=== PATIENT | male | born 1980 | race Caucasian/White ===

== ENCOUNTER 2016-12-10 20:14 | Emergency (ER) | payer OTHER ==
[2016-12-10] MEDS ORDERED: ONDANSETRON 4 MG TAB.RAPDIS PO ONE (21:32)
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
[2016-12-11] MEDS ORDERED: HYDROCODONE/ACETAMINOPHEN 5-325 MG TABLET PO ONE (01:05)
[2016-12-11] MEDS ORDERED: CYCLOBENZAPRINE HCL 10 MG TABLET PO ONE (01:05)
[2016-12-11 01:47] VITALS: BP 122/69
== END 2016-12-11 01:39 | disposition home or self-care (01) ==
LOC: ER 20:14
DX: S20.219A Contusion of unspecified front wall of thorax, initial encounter (principal); S16.1XXA Strain of muscle, fascia and tendon at neck level, initial encounter; S09.90XA Unspecified injury of head, initial encounter; M54.9 Dorsalgia, unspecified; R11.2 Nausea with vomiting, unspecified; V43.52XA Car driver injured in collision with other type car in traffic accident, initial encounter; R42 Dizziness and giddiness; F17.220 Nicotine dependence, chewing tobacco, uncomplicated; Z87.442 Personal history of urinary calculi
CPT/HCPCS: 99284; 71020; 70450; 72125; S0119

== ENCOUNTER 2017-05-31 23:36 | Emergency (ER) | payer SELFPAY ==
--- NOTE | 2017-06-01 | ER Document Report ---
HPI - HPI Patient complains to provider of: Right wrist and hand pain Onset: Other - 2 days Onset/Duration: Sudden Quality of pain: Throbbing Pain Level: 5 Context: 37-year-old male fell backwards slipping on the ice using his outstretched right arm and hand to help support when he fell. After it happened yesterday and today he noticed swelling to his dorsal right hand and wrist with increased pain. He has already been to x-ray and my preliminary read is that it is negative. Associated Symptoms: None Exacerbated by: Movement Relieved by: Denies Similar symptoms previously: No Recently seen / treated by doctor: No - ROS ROS below otherwise negative: Yes Systems Reviewed and Negative: Yes All other systems reviewed and negative - REPRODUCTIVE Reproductive: DENIES: : Past Medical History - General Information source: Patient - Social History Smoking Status: Unknown if Ever Smoked Frequency of alcohol use: None Drug Abuse: None Lives with: Family Family History: Arthritis, CAD, COPD, CVA, DM, Hyperlipidemia, Hypertension, Malignancy, Thyroid Disfunction, Other - Negative for premature coronary artery disease Renal/ Medical History: Reports: Hx Kidney Stones. 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 Psychiatric Medical History: Reports: Hx Attention Deficit Hyperactivity Disorder Denies: Hx Depression Infectious Medical History: Reports: Hx C-Diff Past Surgical History: Reports: Hx Kidney (Renal Surgery), Hx Orthopedic Surgery - right knee - Immunizations Hx Diphtheria, Pertussis, Tetanus Vaccination: No Vertical Provider Document - CONSTITUTIONAL Agree With Documented VS: Yes Exam Limitations: No Limitations - INFECTION CONTROL TRAVEL OUTSIDE OF THE [place] IN LAST 30 DAYS: No - HEENT HEENT: Normocephalic - NECK Neck: Supple - RESPIRATORY O2 Sat by Pulse Oximetry: 100 - MUSCULOSKELETAL/EXTREMETIES Musculoskeletal/Extremeties: MAEW, FROM, Tender, Edema - proximal dorsal right hand over the carpels. Non tender snuff box. FRO<. N/V intact. - NEURO Level of Consciousness: Awake, Alert, Appropriate - DERM Integumentary: Warm, Dry, No Rash Course - Re-evaluation Re-evalutation: 06/01/17 01:05 X-rays are negative per radiologist - Vital Signs Vital signs: Temp Pulse Resp BP Pulse Ox 98.2 F 104 H 16 127/82 H 100 01/05/18 23:42 05/31/17 23:42 05/31/17 23:42 05/31/17 23:42 05/31/17 23:42 Procedures - Immobilization Right Wrist Time completed: 01:10 Pre-Proc Neuro Vasc Exam: Normal Immobilizer type: Adeel wrap Performed by: RN Post-Proc Neuro Vasc Exam: Normal Alignment checked and good: Yes Discharge - Discharge Clinical Impression: right hand and wrist sprain Condition: Good Disposition: HOME, SELF-CARE Instructions: Sprain ([facility] [place]), Adeel Wrap ([facility]) Additional Instructions: adeel wrap for comfort tylenol and motrin for pain to er any concerns copy of negative radiology report given to you see orthopedic hand surgeon if problem persists Referrals: TALIA MARTINES DO [ACTIVE STAFF] - Follow up as needed
[2017-06-01 00:09] VITALS: BP 130/71
--- NOTE | 2017-06-01 00:54 | RADIOLOGY REPORT (SQ) ---
EXAM DESCRIPTION: WRIST RIGHT 3 VIEWS (accession [id number]), HAND RIGHT 3 VIEWS (accession [id number]) CLINICAL HISTORY: 37 years, Male, fall with pain COMPARISON: None. TECHNIQUE: Six images. FINDINGS: Bones, joints, and soft tissues of the right hand and wrist appear intact. IMPRESSION: No acute findings. 2011 [employer]- All Rights Reserved
--- NOTE | 2017-06-01 00:54 | RADIOLOGY REPORT (SQ) ---
EXAM DESCRIPTION: WRIST RIGHT 3 VIEWS (accession [id number]), HAND RIGHT 3 VIEWS (accession [id number]) CLINICAL HISTORY: 37 years, Male, fall with pain COMPARISON: None. TECHNIQUE: Six images. FINDINGS: Bones, joints, and soft tissues of the right hand and wrist appear intact. IMPRESSION: No acute findings. 2011 [employer]- All Rights Reserved
== END 2017-06-01 01:17 | disposition home or self-care (01) ==
LOC: ER 23:36
DX: S63.501A Unspecified sprain of right wrist, initial encounter (principal); S63.91XA Sprain of unspecified part of right wrist and hand, initial encounter; W00.0XXA Fall on same level due to ice and snow, initial encounter; Z87.442 Personal history of urinary calculi
CPT/HCPCS: 99283

== ENCOUNTER 2017-11-11 00:34 | Emergency (ER) | payer SELFPAY ==
[2017-11-11] MEDS ORDERED: KETOROLAC TROMETHAMINE INJ/PF 30 MG/1 ML SDV IM ONE (01:33)
--- NOTE | 2017-11-11 01:57 | RADIOLOGY REPORT (SQ) ---
EXAM DESCRIPTION: CT ABDOMEN WITHOUT IV CONTRAST COMPLETED DATE/TME: 11/11/2017 01:32 CLINICAL HISTORY: left flank pain COMPARISON: 11/16/2015 TECHNIQUE: CT of the abdomen and pelvis without IV contrast. Evaluation of the solid organs and vasculature is suboptimal due to lack of IV contrast. DLP: 595.55 mGy-cm FINDINGS: Lung Bases: The visualized lung bases are clear. Bones: No destructive bone lesions identified. Abdomen: Liver: The liver has normal size and density. Gallbladder: No calcified gallstones. Spleen, Pancreas, and Adrenal Glands: The spleen, pancreas, and adrenal glands are unremarkable. Kidneys: There is a 0.7 cm obstructing calculus in the mid left ureter producing mild left hydroureter and hydronephrosis. Nonobstructing inferior pole 0.5 cm left renal calculus. No right-sided hydronephrosis. Vasculature: The aorta and IVC have normal caliber and position. Stomach: The stomach and duodenum have normal course. Other: No free intraperitoneal air. No free fluid or lymphadenopathy. Pelvis: Bladder: Urinary bladder is unremarkable. Bowel: Scattered diverticula colon. No pericolic inflammatory change. Appendix: Normal appendix. Pelvis: Prostate is not enlarged. IMPRESSION: 1. There is a 0.7 cm obstructing calculus in the mid left ureter producing mild left hydroureter and hydronephrosis. 2. Nonobstructing left nephrolithiasis. 3. Diverticulosis without evidence of acute diverticulitis. This exam was performed according to our departmental dose-optimization program, which includes automated exposure control, adjustment of the mA and/or kV according to patient size and/or use of iterative reconstruction technique.
--- NOTE | 2017-11-11 01:59 | ER Document Report ---
ED GI/ - General Chief Complaint: Possible Kidney Stone Stated Complaint: LOWER LT ABDOMINAL PAIN Time Seen by Provider: 11/11/17 01:32 Notes: The patient is a 37-year-old male, past medical history prior kidney stones that required urologic intervention, presents with left-sided flank pain radiating into his groin. On my evaluation, he feels like the pain has improved. Patient denies hematuria, dysuria, nausea, vomiting, fevers, diarrhea or constipation. TRAVEL OUTSIDE OF THE [place] IN LAST 30 DAYS: No - Related Data Allergies/Adverse Reactions: No Known Allergies Allergy (Verified 11/13/15 09:12) Past Medical History - General Information source: Patient - Social History Smoking Status: Unknown if Ever Smoked Family History: Arthritis, CAD, COPD, CVA, DM, Hyperlipidemia, Hypertension, Malignancy, Thyroid Disfunction, Other - Negative for premature coronary artery disease Renal/ Medical History: Reports: Hx Kidney Stones. 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 RESPIRATORY: -cough, -SOB GASTROINTESTINAL: +left-sided abdominal pain, -nausea, -vomiting, -diarrhea GENITOURINARY: -dysuria, -hematuria MUSCULOSKELETAL: -back pain, -neck pain SKIN: -rash or skin lesions. HEMATOLOGIC: -easy bruising or bleeding. LYMPHATIC: -swollen, enlarged glands. NEUROLOGICAL: -altered mental status or loss of consciousness, -headache, - neurologic symptoms PSYCHIATRIC: -anxiety, -depression. ALL OTHER SYSTEMS REVIEWED AND NEGATIVE. Physical Exam - Vital signs Vitals: Temp Pulse Resp BP Pulse Ox 97.9 F 77 15 125/72 95 11/11/17 01:28 11/11/17 01:28 11/11/17 01:28 11/11/17 01:28 11/11/17 01:28 - Notes Notes: PHYSICAL EXAMINATION: GENERAL: Well-appearing, well-nourished and in no acute distress. HEAD: Atraumatic, normocephalic. EYES: Pupils equal round and reactive to light, extraocular movements intact, sclera anicteric, conjunctiva are normal. ENT: nares patent, oropharynx clear without exudates. Moist mucous membranes. NECK: Normal range of motion, supple without lymphadenopathy LUNGS: Breath sounds clear to auscultation bilaterally and equal. No wheezes rales or rhonchi. HEART: Regular rate and rhythm without murmurs ABDOMEN: Soft, nontender, normoactive bowel sounds. No guarding, no rebound. No masses appreciated. EXTREMITIES: Normal range of motion, no pitting or edema. No cyanosis. NEUROLOGICAL: Cranial nerves grossly intact. Normal speech, normal gait. Normal sensory and motor exams. PSYCH: Normal mood, normal affect. SKIN: Warm, Dry, normal turgor, no rashes or lesions noted. Course - Re-evaluation Re-evalutation: Patient appears well and is refusing any pain medicine. He has a 7 mm stone at the mid-left ureter. Urinalysis shows 143 WBCs, but only trace leukocyte esterase. No fever and no signs of sepsis. We will begin him on Keflex and offered him admission, but he says he feels fine and will follow up with his urologist. Because of the size of the stone, will begin the patient on Flomax and have him follow-up with the urologist for further evaluation and treatment. Given very strict return precautions and he understands. - Vital Signs Vital signs: Temp Pulse Resp BP Pulse Ox 97.9 F 77 15 125/72 95 11/11/17 01:28 11/11/17 01:28 11/11/17 01:28 11/11/17 01:28 11/11/17 01:28 - Laboratory Laboratory results interpreted by me: 11/11/17 02:06 Urine Protein 100 H Urine Blood LARGE H Urine Urobilinogen 2.0 H Ur Leukocyte Esterase TRACE H - Diagnostic Test Radiology reviewed: Image reviewed, Reports reviewed Radiology results interpreted by me: CT A/P: 1. There is a 0.7 cm obstructing calculus in the mid left ureter producing mild left hydroureter and hydronephrosis. 2. Nonobstructing left nephrolithiasis. 3. Diverticulosis without evidence of acute diverticulitis. Discharge - Discharge Clinical Impression: Calculus of left kidney Condition: Stable Disposition: HOME, SELF-CARE Additional Instructions: KIDNEY STONE: You are passing or have passed a kidney stone. These stones are usually due to increased calcium or uric acid concentrations in your urine. Stones within the kidney itself are not painful. The pain occurs as the stone leaves the kidney to pass down the long tube, called the ureter, leading to the bladder. If the stone is small, it will usually pass by itself. Most patients can pass the stone at home. You will usually receive medications for pain, nausea or vomiting, and sometimes a medication to assist in passing the kidney stone. However, if the pain is very severe or if vomiting prevents you from taking oral pain medications, you may need to return for further treatment. Drink three or four quarts of fluids per day. You will be given pain medication (if needed) and urine strainers. Strain all your urine to see if the stone passes. If your doctor has asked you to bring the stone in for analysis, return with the stone once it has passed. Return if pain or vomiting become severe, if you develop a high fever, if you are unable to pass your urine, or if other unusual symptoms occur. ANTINAUSEA MEDICATION: You have been given a medication to suppress nausea and vomiting. This type of medication can be given as a shot, pill, or suppository. It will usually last for many hours. Pills and shots usually last six to eight hours, suppositories last about 12 hours. For the typical illness, only one or two doses of the medication may be necessary. Mild lightheadedness may occur. This type of medicine can cause drowsiness. Do not drive or operate dangerous machinery while under its influence. Do not mix with alcohol. See your doctor at once if you have muscle spasms or tightness, or uncontrollable motions (particularly of the neck, mouth, or jaw). Persistent vomiting or severe lightheadedness should also be evaluated by the physician. ORAL NARCOTIC MEDICATION: You have been given a prescription for pain control. This medication is a narcotic. It's best taken with food, as nausea can result if taken on an empty stomach. Don't operate machinery or drive within six hours of taking this medication. Do not combine this medicine with alcohol, or with any medication which can cause sedation (such as cold tablets or sleeping pills) unless you get permission from the physician. Narcotics tend to cause constipation. If possible, drink plenty of fluids and eat a diet high in fiber and fruits. Please be aware that prescription narcotics also have the potential for abuse. People become addicted to these medications because of the general sense of wellbeing that they induce. This feeling along with a significant reduction in tension, anxiety, and aggression provides a stimulating seductive quality to these drugs. Once your pain is under control, we encourage you to discard your unused narcotics. FLOMAX (tamsulosin): Flomax is a medicine that shrinks the prostate gland. It helps relieve symptoms of benign prostatic hypertrophy, such as frequent urination, weak stream, and inadequate emptying. It has been shown to dilate the ureter (tube leading from the kidney to the bladder) and help in passing kidney stones Flomax usually causes no side effects. You may notice slight tiredness and dizziness for a few days. Some patients develop nasal congestion. Rarely, impotence can occur. If the symptoms are bothersome and don't improve with continued use, call your doctor. Contact your doctor or return if you have fainting spells, severe weakness or dizziness, shortness of breath, or rash. FOLLOW-UP CARE: If you have been referred to a physician for follow-up care, call the physician s office for an appointment as you were instructed or within the next two days. If you experience worsening or a significant change in your symptoms, notify the physician immediately or return to the Emergency Department at any time for re-evaluation. Prescriptions: Cephalexin Monohydrate [Keflex 500 mg Capsule] 500 mg PO TID 7 Days capsule Hydrocodone/Acetaminophen [[place] 5-325 mg Tablet] 1 tab PO Q6H PRN #7 tablet PRN Reason: Ondansetron [Zofran Odt 4 mg Tablet] 1 - 2 tab PO Q4H PRN #15 tab.rapdis PRN Reason: For Nausea/Vomiting Tamsulosin HCl [Flomax] 0.4 mg PO DAILY #14 cap.er.24h Referrals: [facility] [Provider Group] - Follow up as needed
[2017-11-11 02:27] LABS: BILIRUBIN,URINE NEGATIVE (NEGATIVE); GLUCOSE, URINE NEGATIVE (NEGATIVE); KETONES,URINE NEGATIVE (NEGATIVE); LEUKOCYTE ESTERASE,URINE TRACE (NEGATIVE); NITRITE,URINE NEGATIVE (NEGATIVE); PROTEIN,URINE 100 mg/dL (NEGATIVE); URINE SPECIFIC GRAVITY 1.026
[2017-11-11 02:28] LABS: APPEARANCE,URINE HAZY; COLOR,URINE BROWN
[2017-11-11 03:46] VITALS: BP 107/63
== END 2017-11-11 03:33 | disposition home or self-care (01) ==
LOC: ER 00:34
DX: N13.2 Hydronephrosis with renal and ureteral calculous obstruction (principal); K57.30 Diverticulosis of large intestine without perforation or abscess without bleeding
CPT/HCPCS: 76380; 81001; 99284

== ENCOUNTER 2017-11-29 12:49 | Emergency (ER) | payer SELFPAY ==
[2017-11-29] MEDS ORDERED: FENTANYL CITRATE INJ/PF 100 MCG/2 ML AMPUL IV ONE (13:10)
[2017-11-29] MEDS ORDERED: ONDANSETRON 4 MG TAB.RAPDIS PO ONE (13:10)
[2017-11-29] MEDS ORDERED: NORMAL SALINE 1000 ML 1,000 ML IV ONE (13:10)
--- NOTE | 2017-11-29 13:14 | ER Document Report ---
ED Medical Screen (RME) - General Chief Complaint: Urinary Problem Stated Complaint: ABDOMINAL PAIN Time Seen by Provider: 11/29/17 13:09 Notes: RAPID MEDICAL EVALUATION DISCLOSURE I have seen this patient as part of a Rapid Medical Evaluation and, if applicable, placed any initially appropriate orders. The patient will be seen and fully evaluated, including a full history and physical exam, by a provider ( in Main ED or Fast Track) when a room becomes available. 37-year-old male PMH left sided kidney stone here with complaints of left flank/ back pain nausea vomiting hematuria ongoing for the past 5 days. He has a history of kidney stones at least once per year. He was diagnosed several weeks ago with a kidney stone but thought he passed it because his pain resolved. He was prescribed antibiotics however he only took 4 days of the antibiotics and did not finish the entire course. EXAM Mildly tachycardic No CVA or abdominal TTP TRAVEL OUTSIDE OF THE [place] IN LAST 30 DAYS: No - Related Data Allergies/Adverse Reactions: No Known Allergies Allergy (Verified 11/29/17 12:50) Past Medical History Renal/ Medical History: Reports: Hx Kidney Stones. 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 Psychiatric Medical History: Reports: Hx Attention Deficit Hyperactivity Disorder Denies: Hx Depression Infectious Medical History: Reports: Hx C-Diff Past Surgical History: Reports: Hx Kidney (Renal Surgery), Hx Orthopedic Surgery - right knee - Immunizations Hx Diphtheria, Pertussis, Tetanus Vaccination: No Physical Exam - Vital signs Vitals: Temp Pulse Resp BP Pulse Ox 98.5 F 117 H 16 122/78 96 11/29/17 13:03 11/29/17 13:03 11/29/17 13:11/29/17 13:11/29/17 13:03 Course - Vital Signs Vital signs: Temp Pulse Resp BP Pulse Ox 98.5 F 117 H 16 122/78 96 11/29/17 13:03 11/29/17 13:03 11/29/17 13:03 11/29/17 13:03 11/29/17 13:03
[2017-11-29 14:18] LABS: ABSOLUTE LYMPHOCYTES (AUTO) 2.4 10^3/uL (0.5-4.7); ABSOLUTE MONOCYTES (AUTO) 0.7 10^3/uL (0.1-1.4); ABSOLUTE NEUT (AUTO) 5.5 10^3/uL (1.7-8.2); BASOPHILS % (AUTO) 0.5 % (0-2); EOSINOPHILS % (AUTO) 0.5 % (0-6); HEMATOCRIT 47.8 % (37.9-51.0); HEMOGLOBIN 16.7 g/dL (13.5-17.0); LYMPHOCYTES % (AUTO) 27.6 % (13-45); MEAN CORPUSCULAR HEMOGLOBIN 29.7 pg (27.0-33.4); MEAN CORPUSCULAR HGB CONC 34.9 g/dL (32.0-36.0); MEAN CORPUSCULAR VOLUME 85 fl (80-97); PLATELET COUNT 320 10^3/uL (150-450); RED BLOOD COUNT 5.61 10^6/uL (4.35-5.55); RED CELL DISTRIBUTION WIDTH 14.2 % (11.5-14.0); SEGMENTED NEUTROPHILS % (AUTO) 63.4 % (42-78); TOTAL CELLS COUNTED % (AUTO) 100 %; WHITE BLOOD COUNT 8.7 10^3/uL (4.0-10.5)
[2017-11-29 14:25] LABS: APPEARANCE,URINE SLIGHTLY-CLOUDY; BILIRUBIN,URINE NEGATIVE (NEGATIVE); COLOR,URINE YELLOW; GLUCOSE, URINE NEGATIVE (NEGATIVE); KETONES,URINE TRACE mg/dL (NEGATIVE); LEUKOCYTE ESTERASE,URINE MODERATE (NEGATIVE); NITRITE,URINE NEGATIVE (NEGATIVE); PROTEIN,URINE 30 mg/dL (NEGATIVE); URINE SPECIFIC GRAVITY 1.027; UROBILINOGEN,URINE NEGATIVE mg/dL (<2.0)
[2017-11-29 14:37] LABS: ANION GAP 13 (5-19); BLOOD UREA NITROGEN 17 mg/dL (7-20); CALCIUM 9.6 mg/dL (8.4-10.2); CARBON DIOXIDE 22 mmol/L (22-30); CHLORIDE 108 mmol/L (98-107); GLUCOSE 105 mg/dL (75-110); POTASSIUM 4.4 mmol/L (3.6-5.0); SODIUM 143.4 mmol/L (137-145)
--- NOTE | 2017-11-29 15:13 | ER Document Report ---
ED General - General Chief Complaint: Urinary Problem Stated Complaint: ABDOMINAL PAIN Time Seen by Provider: 11/29/17 13:09 Mode of Arrival: Ambulatory Information source: Patient Notes: 37 yr old male with diagnosis of kidney stone 7 mm in the left ureter a few weeks ago with resolution of the pain until a fe w days ago when he started having the pain again. pt was started on antibotics but only took a few dyas of it , denies any fevers or chills. pt notes hes had blood in urine . 6 pervious kidney stones TRAVEL OUTSIDE OF THE [place] IN LAST 30 DAYS: No - HPI Onset: Other - 3 day duratoin Onset/Duration: Persistent, Worse Quality of pain: Achy Severity: Mild Pain Level: 1 Associated symptoms: Other Exacerbated by: Denies Relieved by: Denies Similar symptoms previously: Yes Recently seen / treated by doctor: Yes - Related Data Allergies/Adverse Reactions: No Known Allergies Allergy (Verified 11/29/17 12:50) Past Medical History - Social History Smoking Status: Current Every Day Smoker Cigarette use (# per day): Yes Chew tobacco use (# tins/day): No Smoking Education Provided: No Frequency of alcohol use: None Drug Abuse: None Family History: Arthritis, CAD, COPD, CVA, DM, Hyperlipidemia, Hypertension, Malignancy, Thyroid Disfunction, Other - Negative for premature coronary artery disease Patient has suicidal ideation: No Patient has homicidal ideation: No Renal/ Medical History: Reports: Hx Kidney Stones. 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 Denies recent illness. EENT: Denies eye, ear, throat, or mouth pain or symptoms. Denies nasal or sinus congestion or discharge. Denies throat, tongue, or mouth swelling or difficulty swallowing. CARDIOVASCULAR: Denies chest pain. Denies palpitations or racing or irregular heart beat. Denies ankle edema. RESPIRATORY: Denies cough, cold, or chest congestion. Denies shortness of breath, difficulty breathing, or wheezing. GASTROINTESTINAL: Denies abdominal pain or distention. Denies nausea, vomiting , or diarrhea. Denies blood in vomitus, stools, or per rectum. Denies black, tarry stools. Denies constipation. GENITOURINARY: Denies difficulty urinating, painful urination, burning, frequency, blood in urine, or discharge. FEMALE GENITOURINARY: Denies vaginal bleeding, heavy or abnormal periods, irregular periods. Denies vaginal discharge or odor. MUSCULOSKELETAL: admits to flank pain SKIN: Denies rash, lesions or sores. HEMATOLOGIC : Denies easy bruising or bleeding. LYMPHATIC: Denies swollen, enlarged glands. NEUROLOGICAL: Denies confusion or altered mental status. Denies passing out or loss of consciousness. Denies dizziness or lightheadedness. Denies headache. Denies weakness or paralysis or loss of use of either side. Denies problems with gait or speech. Denies sensory loss, numbness, or tingling. Denies seizures. PSYCHIATRIC: Denies anxiety or stress. Denies depression, suicidal ideation, or homicidal ideation. ALL OTHER SYSTEMS REVIEWED AND NEGATIVE. PHYSICAL EXAMINATION: GENERAL: Well-appearing, well-nourished and in no acute distress. HEAD: Atraumatic, normocephalic. EYES: Pupils equal round and reactive to light, extraocular movements intact, conjunctiva are normal. ENT: Nares patent, oropharynx clear without exudates. Moist mucous membranes. NECK: Normal range of motion, supple without lymphadenopathy LUNGS: Breath sounds clear to auscultation bilaterally and equal. No wheezes rales or rhonchi. HEART: Regular rate and rhythm without murmurs ABDOMEN: Soft, tender in the LLQ , nondistended abdomen. No guarding, no rebound. No masses appreciated. Female : deferred Musculoskeletal: Normal range of motion, no pitting or edema. No cyanosis. NEUROLOGICAL: Cranial nerves grossly intact. Normal speech, normal gait. Normal sensory, motor exams PSYCH: Normal mood, normal affect. SKIN: Warm, Dry, normal turgor, no rashes or lesions noted. Dictation was performed using [email or web address] voice recognition software Physical Exam - Vital signs Vitals: Temp Pulse Resp BP Pulse Ox 98.5 F 117 H 16 122/78 96 11/29/17 13:03 11/29/17 13:03 11/29/17 13:03 11/29/17 13:03 11/29/17 13:03 Course - Re-evaluation Re-evalutation: 11/29/17 15:25 concern for infected stone , ct pending 11/29/17 16:11 [facility] consulted , awaiting call from Dr Victor , 7 mm stone is i nthe uvj , no wbc count, no fever, but UTI noted 11/29/17 16:51 Dr Victor requests patient follow up in the office, he states ot culture urine and continue cipro, Patient is happy with this plan After performing a Medical Screening Examination, I estimate there is LOW risk for ACUTE APPENDICITIS, BOWEL OBSTRUCTION, ACUTE CHOLECYSTITIS, PERFORATED DIVERTICULITIS, INCARCERATED HERNIA, PANCREATITIS, TESTICULAR TORSION or PERFORATED ULCER, thus I consider the discharge disposition reasonable. Also, there is no evidence or peritonitis, sepsis, or toxicity. I have reevaluated this patient multiple times and no significant life threatening changes are noted. The patient and I have discussed the diagnosis and risks, and we agree with discharging home with close follow-up with the understanding that symptoms and presentations can change. We also discussed returning to the Emergency Department immediately if new or worsening symptoms occur. We have discussed the symptoms which are most concerning (e.g., bloody stool, fever, changing or worsening pain, intractable vomiting - standard verbal up date) that necessitate immediate return. - Vital Signs Vital signs: Temp Pulse Resp BP Pulse Ox 98.5 F 117 H 16 122/78 96 11/29/17 13:03 11/29/17 13:03 11/29/17 13:03 11/29/17 13:03 11/29/17 13:03 - Laboratory Result Diagrams: 11/29/17 13:05 11/29/17 14:07 Laboratory results interpreted by me: 11/29/17 11/29/17 11/29/17 13:05 13:05 14:07 RBC 5.61 H RDW 14.2 H Chloride 108 H Urine Protein 30 H Urine Ketones TRACE H Urine Blood MODERATE H Ur Leukocyte Esterase MODERATE H - Diagnostic Test Radiology reviewed: Reports reviewed Discharge - Discharge Clinical Impression: Kidney stone on left side Condition: Stable Disposition: HOME, SELF-CARE Instructions: Kidney Stone ([facility]) Prescriptions: Ciprofloxacin HCl [Cipro 500 mg Tablet] 500 mg PO BID #20 tablet Metoclopramide HCl [Reglan 10 mg Tablet] 1 - 2 tab PO Q6 #25 tablet Oxycodone HCl/Acetaminophen [Percocet 5-325 mg Tablet] 1 tab PO Q6 #20 tab Tamsulosin HCl [Flomax 0.4 mg Cap.sr] 0.4 mg PO DAILY #14 cap.sr.24h Referrals: SENAIT VICTOR MD [NO LOCAL MD] - Follow up in 3-5 days
--- NOTE | 2017-11-29 15:30 | RADIOLOGY REPORT (SQ) ---
EXAM DESCRIPTION: CT LTD RENAL STONE PROTOCOL ON COMPLETED DATE/TIME: 11/29/2017 3:16 pm REASON FOR STUDY: hx kidney stones, uti COMPARISON: 11/11/2017 TECHNIQUE: CT scan of the abdomen and pelvis performed without intravenous or oral contrast. Images reviewed with lung, soft tissue, and bone windows. Reconstructed coronal and sagittal MPR images revi ewed. All images stored on PACS. All CT scanners at this facility use dose modulation, iterative reconstruction, and/or weight based d osing when appropriate to reduce radiation dose to as low as reasonably achievable (ALARA). [facility]: Dose Right [facility]: CareDose [facility]: Dose Right [facility]: Teradose 4D [facility]: Smart [employer] RADIATION DOSE: CT Rad equipment meets quality standard of care and radiation dose reduction techniq ues were employed. CTDIvol: 8.6 mGy. DLP: 480 mGy-cm.mGy. LIMITATIONS: None. FINDINGS: LOWER CHEST: No significant findings. No nodules or infiltrates. NON-CONTRASTED LIVER, SPLEEN, ADRENALS: Evaluation limited by lack of IV contrast. No identified sign ificant masses. PANCREAS: No masses. No peripancreatic inflammatory changes. GALLBLADDER: Contracted. No stones. RIGHT KIDNEY AND URETER: No suspicious masses. Assessment limited by lack of IV contrast. No signif icant calcifications. No hydronephrosis or hydroureter. LEFT KIDNEY AND URETER: No suspicious masses. Assessment limited by lack of IV contrast. Nonobstruc ting lower calyceal calculus. 7 mm distal ureteral calculus about 10 mm proximal to the UVJ. Mild hydroureter. AORTA AND RETROPERITONEUM: No aneurysm. No retroperitoneal masses or adenopathy. BOWEL AND PERITONEAL CAVITY: No obvious masses. Sigmoid diverticulosis with no acute inflammatory ch anges. APPENDIX: Normal. PELVIS, BLADDER, AND ABDOMINAL WALL:No abnormal masses. No free fluid. Bladder normal. BONES: No significant findings. OTHER: No other significant finding. IMPRESSION: 1. The left ureteral calculus has moved close to the UVJ as described. 2. Nonobstructing lower calyceal calculus on the left. COMMENT: Quality ID # [id number]: Final reports with documentation of one or more dose reduction techniques (e.g., Automated exposure control, adjustment of the mA and/or kV according to patient size, use of iterative reconstruction technique) TECHNICAL DOCUMENTATION: JOB ID: [id number] [employer]- All Rights Reserved Reading location - IP/workstation name: [email or web address]
[2017-11-29] MEDS ORDERED: CIPROFLOXACIN 400 MG/D5W RTU 400 MG/200 ML RTUPB IV SCH (16:00)
[2017-11-29] MEDS ORDERED: HYDROMORPHONE HCL INJ/PF 2 MG/ML AMPULE IV ONE (16:10)
[2017-11-29 17:21] VITALS: BP 123/72
== END 2017-11-29 17:20 | disposition home or self-care (01) ==
LOC: ER 12:49
DX: N13.2 Hydronephrosis with renal and ureteral calculous obstruction (principal); R31.9 Hematuria, unspecified; F17.210 Nicotine dependence, cigarettes, uncomplicated
CPT/HCPCS: 99284; 96361; 96375; 96365; 36415; 87040; 87086; 85025; 87077; 80048; 81001; 87186; 76380; S0119; J3010; J1170; J7030; J0744

== ENCOUNTER 2017-12-05 03:35 | Inpatient (IN) | payer SELFPAY ==
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
[2017-12-05 05:30] LABS: ALANINE AMINOTRANSFERASE 26 U/L (21-72); ALBUMIN 3.7 g/dL (3.5-5.0); ALKALINE PHOSPHATASE 54 U/L (38-126); ANION GAP 10 (5-19); ASPARTATE AMINO TRANSFERASE 19 U/L (17-59); BILIRUBIN,DIRECT 0.3 mg/dL (0.0-0.4); BILIRUBIN,TOTAL 0.8 mg/dL (0.2-1.3); BLOOD UREA NITROGEN 13 mg/dL (7-20); CARBON DIOXIDE 26 mmol/L (22-30); CHLORIDE 104 mmol/L (98-107); GLUCOSE 119 mg/dL (75-110); POTASSIUM 3.6 mmol/L (3.6-5.0); SODIUM 140.3 mmol/L (137-145); TOTAL PROTEIN 6.6 g/dL (6.3-8.2)
--- NOTE | 2017-12-05 05:35 | RADIOLOGY REPORT (SQ) ---
EXAM DESCRIPTION: CT HEAD WITHOUT IV CONTRAST COMPLETED DATE/TME: 12/05/2017 00:00 CLINICAL HISTORY: ams COMPARISON: 12/10/2016 TECHNIQUE: Axial CT of the head obtained from the skull apex to the skull base without contrast. FINDINGS: No acute intracranial hemorrhage identified. No mass, mass effect, shift of the midline, abnormal extra-axial fluid collection or CT evidence of acute ischemic change identified. The ventricular system is unremarkable. No acute abnormalities of the supratentorial white matter, basal ganglia, cerebellum, or brainstem. The visualized paranasal sinuses and the mastoids are clear. No skull fracture identified. Visualized orbits and globes are unremarkable. DLP: 1096.98 mGy-cm IMPRESSION: 1. No acute intracranial abnormality identified. This exam was performed according to our departmental dose-optimization program, which includes automated exposure control, adjustment of the mA and/or kV according to patient size and/or use of iterative reconstruction technique.
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
[2017-12-05] MEDS ORDERED: NORMAL SALINE 1000 ML 1,000 ML IV ONE ×3 (05:58→09:58)
[2017-12-05 06:49] LABS: HEMATOCRIT 40.7 % (37.9-51.0); MEAN CORPUSCULAR HEMOGLOBIN 29.4 pg (27.0-33.4); MEAN CORPUSCULAR HGB CONC 34.3 g/dL (32.0-36.0); MEAN CORPUSCULAR VOLUME 86 fl (80-97); PLATELET COUNT 246 10^3/uL (150-450); RED BLOOD COUNT 4.75 10^6/uL (4.35-5.55); RED CELL DISTRIBUTION WIDTH 14.5 % (11.5-14.0); WHITE BLOOD COUNT 21.9 10^3/uL (4.0-10.5)
[2017-12-05 06:53] LABS: ABSOLUTE LYMPHOCYTES# (MANUAL) 1.5 10^3/uL (0.5-4.7); ABSOLUTE MONOCYTES # (MANUAL) 1.5 10^3/uL (0.1-1.4); ABSOLUTE NEUTROPHILS# (MANUAL) 18.8 10^3/uL (1.7-8.2); BAND NEUTROPHILS % (MANUAL) 4 % (3-5); BASOPHILS % (MANUAL) 0 % (0-2); EOSINOPHILS % (MANUAL) 0 % (0-6); LYMPHOCYTES % (MANUAL) 7 % (13-45); MONOCYTES % (MANUAL) 7 % (3-13); SEGMENTED NEUTROPHILS % (MAN) 82 % (42-78); TOTAL CELLS COUNTED 100
[2017-12-05 06:54] LABS: PLATELET COMMENT ADEQUATE; RBC MORPHOLOGY COMMENT NORMO-CYTIC/CHROMIC
[2017-12-05] MEDS ORDERED: CEFTRIAXONE 1 GM/D5W RTU 50 ML IV ONE (06:59)
[2017-12-05] MEDS ORDERED: CEFTRIAXONE SODIUM 1,000 MG in DEXTROSE 5%-WATER 50 ML IV ONE (08:00)
[2017-12-05 08:48] LABS: APPEARANCE,URINE CLEAR; BILIRUBIN,URINE NEGATIVE (NEGATIVE); COLOR,URINE YELLOW; GLUCOSE, URINE NEGATIVE (NEGATIVE); KETONES,URINE NEGATIVE (NEGATIVE); LEUKOCYTE ESTERASE,URINE NEGATIVE (NEGATIVE); NITRITE,URINE NEGATIVE (NEGATIVE); PROTEIN,URINE NEGATIVE (NEGATIVE); URINE SPECIFIC GRAVITY 1.013; UROBILINOGEN,URINE NEGATIVE mg/dL (<2.0)
--- NOTE | 2017-12-05 09:08 | RADIOLOGY REPORT (SQ) ---
EXAM DESCRIPTION: CT ABD/PELVIS WITH IV ONLY COMPLETED DATE/TIME: 12/05/2017 8:46 am REASON FOR STUDY: fever , poor historian COMPARISON: CT abdomen pelvis 11/29/2017, 11/11/2017, 11/16/2015, 11/13/2015, 10/19/2015 TECHNIQUE: CT scan of the abdomen and pelvis performed using helical scanning technique with dynamic intravenous contrast injection. No oral contrast. Images reviewed with lung, soft tissue, and bone windows. Reconstructed coronal and sagittal MPR images reviewed. Delayed images for evaluation of the urinary system also acquired. All images stored on PACS. All CT scanners at this facility use dose modulation, iterative reconstruction, and/or weight based d osing when appropriate to reduce radiation dose to as low as reasonably achievable (ALARA). [facility]: Dose Right [facility]: CareDose [facility]: Dose Right [facility]: Teradose 4D [facility]: IRI CONTRAST TYPE AND DOSE: contrast/concentration: Isovue 370.00 mg/ml; Total Contrast Delivered: 99.0 ml; Total Saline Delivered: 72.0 ml RENAL FUNCTION: Creatinine 0.8 RADIATION DOSE: CT Rad equipment meets quality standard of care and radiation dose reduction techniq ues were employed. CTDIvol: 15.0 - 21.6 mGy. DLP: 2119 mGy-cm.. LIMITATIONS: None. FINDINGS: LOWER CHEST: No significant findings. No nodules or infiltrates. LIVER: Normal size. No masses. No dilated ducts. SPLEEN: Normal size. No focal lesions. PANCREAS: No masses. No significant calcifications. No adjacent inflammation or peripancreatic fluid collections. Pancreatic duct not dilated. GALLBLADDER: No identified stones by CT criteria. No inflammatory changes to suggest cholecystitis. ADRENAL GLANDS: No significant masses or asymmetry. RIGHT KIDNEY AND URETER: No solid masses. No significant calcifications. No hydronephrosis or hyd roureter. LEFT KIDNEY AND URETER: No solid masses. 7 mm left lower pole intrarenal nonobstructive stone No hydronephrosis or hydroureter. AORTA AND VESSELS: No aneurysm. No dissection. Renal arteries, SMA, celiac without stenosis. RETROPERITONEUM: No retroperitoneal adenopathy, hemorrhage or masses. BOWEL AND PERITONEAL CAVITY: No masses or inflammatory changes. No free fluid or peritoneal masses. Scattered colonic diverticuli without CT signs of acute diverticulitis. APPENDIX: Normal. PELVIS: No mass. No free fluid. 8 mm bladder stone on axial image 86 and coronal image 60. ABDOMINAL WALL: No masses. No hernias. BONES: No significant or acute findings. OTHER: No other significant finding. IMPRESSION: No acute process. 7 mm left lower pole intrarenal nonobstructive stone, 8 mm bladder stone. TECHNICAL DOCUMENTATION: JOB ID: [id number] Quality ID # [id number]: Final reports with documentation of one or more dose reduction techniques (e.g., Au tomated exposure control, adjustment of the mA and/or kV according to patient size, use of iterative reconstruction technique) 2010 [employer]- All Rights Reserved Reading location - IP/workstation name: [email or web address]
[2017-12-05] MEDS ORDERED: ONDANSETRON 4 MG TAB.RAPDIS PO PRN (09:42)
[2017-12-05] MEDS ORDERED: ACETAMINOPHEN 325 MG TABLET PO PRN ×2 (09:42→19:58)
[2017-12-05] MEDS ORDERED: KETOROLAC TROMETHAMINE INJ/PF 30 MG/1 ML SDV IV PRN ×2 (09:59→19:58)
[2017-12-05] MEDS ORDERED: TAMSULOSIN HCL 0.4 MG CAP.SR.24H PO ONE (10:00)
[2017-12-05 10:11] LABS: ALANINE AMINOTRANSFERASE 29 U/L (21-72); ALKALINE PHOSPHATASE 47 U/L (38-126); ANION GAP 9 (5-19); ASPARTATE AMINO TRANSFERASE 19 U/L (17-59); BILIRUBIN,DIRECT 0.3 mg/dL (0.0-0.4); BILIRUBIN,TOTAL 0.6 mg/dL (0.2-1.3); BLOOD UREA NITROGEN 9 mg/dL (7-20); CARBON DIOXIDE 21 mmol/L (22-30); CHLORIDE 110 mmol/L (98-107); GLUCOSE 120 mg/dL (75-110); POTASSIUM 3.9 mmol/L (3.6-5.0); SODIUM 140.4 mmol/L (137-145); TOTAL PROTEIN 5.9 g/dL (6.3-8.2)
[2017-12-05 10:47] LABS: URINE AMPHETAMINES SCREEN UNCONFIRMED POSITIVE; URINE BARBITURATES SCREEN NEGATIVE; URINE BENZODIAZEPINES SCREEN NEGATIVE; URINE COCAINE SCREEN NEGATIVE; URINE MARIJUANA (THC) SCREEN NEGATIVE; URINE METHADONE SCREEN NEGATIVE; URINE PHENCYCLIDINE SCREEN NEGATIVE
[2017-12-05] MEDS: ENOXAPARIN SODIUM INJ 30 MG/0.3 ML DISP.SYRIN SUBCUT SCH (11:11)
[2017-12-05] MEDS: NORMAL SALINE 1000 ML 1,000 ML IV PRN ×2 (11:17→17:21)
[2017-12-05] MEDS ORDERED: NALOXONE HCL INJ/PF 0.4 MG/1 ML SDV IV ONE (11:30)
--- NOTE | 2017-12-05 18:24 | PDOC H&P ---
<MARYCARMEN ELDRIDGE - Last Filed: 12/05/17 18:19> History of Present Illness Admission Date/PCP: 12/05/17 09:36 Patient complains of: Abdominal pain History of Present Illness: YASH DUFFY is a 37 year old male who presented to the emergency department with left lower quadrant abdominal pain and dysuria 3-[address] of the abdomen reveals a 7 mm L nonobstructing intrarenal calculi and an 8 mm calculi in the bladder. Of note, the patient was recently seen at [facility] ED 2017 for nephrolithiasis, diagnosed with a 7 mm nonobstructing L ureteral calculi. He was discharged home on ciprofloxacin and Flagyl, as well as Percocet for pain control. The patient was instructed to follow-up with urology , but states he never did. The patient describes his left lower quadrant pain as stabbing/shooting, and states it is intermittent in nature. The patient endorses taking 3 Percocet tablets this morning for his symptoms, but states it offered little relief. PMH includes nephrolithiasis In the emergency department, the patient's vital signs T 98.1 BP 115/59 RR 18 HR 114 SPO2 94%. Lab work revealed leukocytosis (WBC 21,000). Bandemia (4%). All other lab work relatively benign. Urinalysis negative for UTI. His SBP dropped to the 80s while he was in the ED and the patient was resuscitated with 3 L IVF NS. Following this his SBP returns to 110-120. Additionally, the patient was given 1 g ceftriaxone IV for empiric antibiotic coverage. The patient meets sepsis criteria given his tachycardia, hypotension, and leukocytosis, therefore he was admitted to the hospitalist service for inpatient admission. Past Medical History Renal/ Medical History: Reports: Nephrolithiasis GI Medical History: Reports: Diverticulitis Musculoskeltal Medical History: Reports: Gout Psychiatric Medical History: Reports: Attention Deficit Hyperactivity Disorder Denies: Depression Infectious Medical History: Reports: Clostridium Difficile Past Surgical History Past Surgical History: Reports: Orthopedic Surgery - right knee, Other - lithotripsy Social History Information Source: Patient Lives with: Alone Smoking Status: Current Every Day Smoker Cigarettes Packs Per Day: 1 Number of Years Smokin.5 - patient staes he started smoking 6 months ago Frequency of Alcohol Use: Rare Hx Recreational Drug Use: No Drugs: None Hx Prescription Drug Abuse: No Family History Family History: Arthritis, CAD, COPD, CVA, DM, Hyperlipidemia, Hypertension, Malignancy, Thyroid Disfunction, Other - Negative for premature coronary artery disease Parental Family History Reviewed: Yes Children Family History Reviewed: NA Sibling(s) Family History Reviewed.: NA Medication/Allergy Home Medications: Ciprofloxacin HCl [Cipro 500 mg Tablet] 500 mg PO BID 12/05/17 Metoclopramide HCl [Reglan 10 mg Tablet] 10 mg PO Q6 12/05/17 Oxycodone HCl/Acetaminophen [Percocet 5-325 mg Tablet] 1 tab PO Q6HP PRN Tamsulosin HCl [Flomax] 0.4 mg PO DAILY 12/05/17 Allergies/Adverse Reactions: No Known Allergies Allergy (Verified 11/29/17 12:50) Review of Systems All systems: reviewed and no additional remarkable complaints except as stated Physical Exam Vital Signs: Temp Pulse Resp BP Pulse Ox 98.2 F 114 H 20 101/71 96 12/05/17 08:33 12/05/17 03:41 12/05/17 10:30 12/05/17 10:30 12/05/17 10:30 General appearance: PRESENT: no acute distress Eye exam: PRESENT: conjunctiva pink Mouth exam: PRESENT: moist Neck exam: PRESENT: full ROM Respiratory exam: PRESENT: clear to auscultation cassie, symmetrical, unlabored Cardiovascular exam: PRESENT: +S1, +S2 Pulses: PRESENT: normal radial pulses, normal dorsalis pedis pul GI/Abdominal exam: PRESENT: soft. ABSENT: tenderness Rectal exam: PRESENT: deferred Extremities exam: PRESENT: full ROM Musculoskeletal exam: PRESENT: ambulatory, full ROM Neurological exam: PRESENT: alert, awake, oriented to person, oriented to place , oriented to time, oriented to situation Psychiatric exam: PRESENT: appropriate affect Skin exam: PRESENT: dry, intact Results Laboratory Results: 12/05/17 09:40 12/05/17 09:40 Sodium 140.4 Potassium 3.9 Chloride 110 H Carbon Dioxide 21 L Anion Gap 9 BUN 9 Creatinine 0.64 Est GFR ( Amer) > 60 Est GFR (Non-Af Amer) > 60 Glucose 120 H Calcium 8.0 L Total Bilirubin 0.6 AST 19 ALT 29 Alkaline Phosphatase 47 Total Protein 5.9 L Albumin 3.0 L Impressions: Head CT 12/05/17 00:00 IMPRESSION: 1. No acute intracranial abnormality identified. This exam was performed according to our departmental dose-optimization program, which includes automated exposure control, adjustment of the mA and/or kV according to patient size and/or use of iterative reconstruction technique. Abdomen/Pelvis CT 12/05/17 07:25 IMPRESSION: No acute process. 7 mm left lower pole intrarenal nonobstructive stone, 8 mm bladder stone. Status: Imported from PACS Assessment & Plan - Diagnosis (1) Sepsis QualifierTitle: Sepsis type: sepsis due to unspecified organism Qualified Code(s): A41.9 - Sepsis, unspecified organism Is this a current diagnosis for this admission?: Yes Plan: As evidence by leukocytosis (WBC 21), HYPOtension (SBP 80s) and tachycardia ( 110s) Lactate negative Possible etiologies include, infected renal calculi or pyelonephritis Urinalysis negative for UTI Blood and urine cultures pending Received 1GM Rocephin IV in ED, continue 1GM q24hr (2) Nephrolithiasis Is this a current diagnosis for this admission?: Yes Plan: History of kidney stones Recent ER visit 1 week ago and diagnosed with 7mm non-obstructing stone in the distal ureter CT today shows 8mm stone in the bladder and 7mm non-obstructing intrarenal stone Consult Urology, appreciate their recommendations Flomax PO daily Toradol 30mg IV PRN pain Maintenance IVF (3) Hypotension QualifierTitle: Hypotension type: other hypotension type Qualified Code(s ): I95.89 - Other hypotension Is this a current diagnosis for this admission?: Yes Plan: Secondary to sepsis and HYPOvolemia. Possibility of infected renal calculi Initially HYPOtensive in the ED (SBP 80s) but MAP remained > 65 Resuscitated with 3L IVF in the ED, SBP improved to 110-120 Maintenance IVF NS 150mL/hr No need for vasopressors at this time - Time Critical Time spent with patient: 15-24 minutes Medications reviewed and adjusted accordingly: Yes Anticipated discharge: Home Within: within 72 hours - Inpatient Certification Based on my medical assessment, after consideration of the patient's comorbidities, presenting symptoms, or acuity I expect that the services needed warrant INPATIENT care.: Yes I certify that my determination is in accordance with my understanding of Medicare's requirements for reasonable and necessary INPATIENT services [42 CFR 412.3e].: Yes Medical Necessity: Need for IV Antibiotics, Risk of Complication if Not Cared For in Hospital - Plan Summary Plan Summary: Admit to hospitalist service. Continue IV antibiotics, IVF, Flomax, pain management. Urology consulted, awaiting recommendations. <ANETASEPTEMBER C - Last Filed: 12/06/17 15:32> History of Present Illness Admission Date/PCP: 12/05/17 09:36 History of Present Illness: YASH DUFFY is a 37 year old male Physical Exam Vital Signs: Temp Pulse Resp BP Pulse Ox 97.9 F 71 18 105/58 L 98 12/06/17 11:00 12/06/17 11:00 12/06/17 11:00 12/06/17 11:00 12/06/17 07:34 Intake & Output 12/05/17 12/06/17 12/07/17 06:59 06:59 06:59 Intake Total 450 Output Total 1250 Balance -800 Weight 96.4 kg Results Laboratory Results: 12/06/17 03:53 12/06/17 03:53 12/06/17 12/06/17 03:53 03:53 WBC 7.8 RBC 4.43 Hgb 13.3 L Hct 38.3 MCV 87 MCH 29.9 MCHC 34.6 RDW 14.3 H Plt Count 174 Sodium 144.5 Potassium 4.1 Chloride 114 H Carbon Dioxide 22 Anion Gap 9 BUN 8 Creatinine 0.64 Est GFR ( Amer) > 60 Est GFR (Non-Af Amer) > 60 Glucose 91 Calcium 8.1 L Phosphorus 3.3 Magnesium 1.7 Impressions: Head CT 12/05/17 00:00 IMPRESSION: 1. No acute intracranial abnormality identified. This exam was performed according to our departmental dose-optimization program, which includes automated exposure control, adjustment of the mA and/or kV according to patient size and/or use of iterative reconstruction technique. Abdomen/Pelvis CT 12/05/17 07:25 IMPRESSION: No acute process. 7 mm left lower pole intrarenal nonobstructive stone, 8 mm bladder stone. Assessment & Plan - Plan Summary Plan Summary: Patient discussed with Marycarmen Eldridge RN. Cosigning note per hospital policy.
[2017-12-05] MEDS: TAMSULOSIN HCL 0.4 MG CAP.SR.24H PO SCH (18:49)
[2017-12-06 04:49] LABS: HEMATOCRIT 38.3 % (37.9-51.0); HEMOGLOBIN 13.3 g/dL (13.5-17.0); MEAN CORPUSCULAR HEMOGLOBIN 29.9 pg (27.0-33.4); MEAN CORPUSCULAR HGB CONC 34.6 g/dL (32.0-36.0); MEAN CORPUSCULAR VOLUME 87 fl (80-97); PLATELET COUNT 174 10^3/uL (150-450); RED BLOOD COUNT 4.43 10^6/uL (4.35-5.55); RED CELL DISTRIBUTION WIDTH 14.3 % (11.5-14.0); WHITE BLOOD COUNT 7.8 10^3/uL (4.0-10.5)
[2017-12-06 05:13] LABS: ANION GAP 9 (5-19); BLOOD UREA NITROGEN 8 mg/dL (7-20); CALCIUM 8.1 mg/dL (8.4-10.2); CARBON DIOXIDE 22 mmol/L (22-30); CHLORIDE 114 mmol/L (98-107); GLUCOSE 91 mg/dL (75-110); PHOSPHORUS 3.3 mg/dL (2.5-4.5); POTASSIUM 4.1 mmol/L (3.6-5.0); SODIUM 144.5 mmol/L (137-145)
[2017-12-06] MEDS ORDERED: MORPHINE SULFATE 10 MG/ML INJ IV PRN ×2 (07:57→10:09)
[2017-12-06] MEDS: ENOXAPARIN SODIUM INJ 30 MG/0.3 ML DISP.SYRIN SUBCUT SCH (09:29)
[2017-12-06] MEDS ORDERED: CEFTRIAXONE 1 GM/D5W RTU 1 GM/50 ML RTUPB IV SCH (10:00)
[2017-12-06] MEDS ORDERED: CEFTRIAXONE SODIUM 1,000 MG in DEXTROSE 5%-WATER 50 ML IV SCH (10:00)
[2017-12-06] MEDS ORDERED: MORPHINE SULFATE 10 MG/ML INJ ONE (12:54)
[2017-12-06 16:06] VITALS: BP 104/52
--- NOTE | 2017-12-06 16:48 | Progress Note ---
Provider Note Provider Note: The patient was seen this morning on rounds. He is resting comfortably in bed on room air. The patient complains of moderate L CVA tenderness. Left lower quadrant abdominal pain has resolved. The patient is frequently asking nursing staff for IV pain medication. The patient's case has been discussed with Dr. Jaime of urology and Dr. Strong , hospitalist attending. There is no evidence of perinephritic edema surrounding the left intrarenal stone. Additionally, neither of the 2 calculi are obstructive. The entire medical team is in agreement that the patient's pain is out of proportion to the objective findings. Additionally, the patient' s leukocytosis has resolved, he has remained afebrile, his blood pressure has returned to normal range following IVF resuscitation. Nursing staff has since reported to this provider that the patient admits to a history of heroin use. His pain tolerance is very low and his narcotic requirement is very high. Since there is no significant findings from the patient's lab work or imaging, the plan is to discharge the patient home today. He will not be prescribed any additional narcotics as he currently has Percocet available to him at home.
[2017-12-06] MEDS: TAMSULOSIN HCL 0.4 MG CAP.SR.24H PO SCH (17:28)
--- NOTE | 2017-12-16 13:04 | PDOC DISCHARGE SUMMARY ---
General - Admit/Disc Date/PCP Admission Date/Primary Care Provider: 12/05/17 09:36 Discharge Date: 12/06/17 - Discharge Diagnosis (1) Sepsis Is this a current diagnosis for this admission?: Yes (2) Nephrolithiasis Is this a current diagnosis for this admission?: Yes (3) Hypotension Is this a current diagnosis for this admission?: Yes - Additional Information Resuscitation Status: Full Code Discharge Diet: As Tolerated Discharge Activity: Activity As Tolerated Prescriptions: Tamsulosin HCl [Flomax 0.4 mg Cap.sr] 0.4 mg PO BID #60 cap.sr.24h Tramadol HCl 50 mg PO Q6HP PRN #16 tablet PRN Reason: For Pain Home Medications: Oxycodone HCl/Acetaminophen [Percocet 5-325 mg Tablet] 1 tab PO Q6HP PRN Tamsulosin HCl [Flomax] 0.4 mg PO DAILY 12/05/17 Tamsulosin HCl [Flomax 0.4 mg Cap.sr] 0.4 mg PO BID #60 cap.sr.24h 12/06/17 Tramadol HCl 50 mg PO Q6HP PRN #16 tablet 12/06/17 History of Present Illness History of Present Illness: YASH DUFFY is a 37 year old male who presented to the emergency department with left lower quadrant abdominal pain and dysuria 3-[address] of the abdomen reveals a 7 mm L nonobstructing intrarenal calculi and an 8 mm calculi in the bladder. Of note, the patient was recently seen at [facility] ED 2017 for nephrolithiasis, diagnosed with a 7 mm nonobstructing L ureteral calculi. He was discharged home on ciprofloxacin and Flagyl, as well as Percocet for pain control. The patient was instructed to follow-up with urology , but states he never did. The patient describes his left lower quadrant pain as stabbing/shooting, and states it is intermittent in nature. The patient endorses taking 3 Percocet tablets this morning for his symptoms, but states it offered little relief. PMH includes nephrolithiasis In the emergency department, the patient's vital signs T 98.1 BP 115/59 RR 18 HR 114 SPO2 94%. Lab work revealed leukocytosis (WBC 21,000). Bandemia (4%). All other lab work relatively benign. Urinalysis negative for UTI. His SBP dropped to the 80s while he was in the ED and the patient was resuscitated with 3 L IVF NS. Following this his SBP returns to 110-120. Additionally, the patient was given 1 g ceftriaxone IV for empiric antibiotic coverage. The patient meets sepsis criteria given his tachycardia, hypotension, and leukocytosis, therefore he was admitted to the hospitalist service for inpatient admission. Hospital Course Hospital Course: 37 y.o. M with a history of nephrolithiasis and diverticulitis admitted for nephrolithiasis. CT Abd/pelvis showed a 7 mm L nonobstructing intrarenal calculi and an 8 mm calculi in the bladder. The patient initially presented to the ED meeting sepsis criteria (HYOPtension, leukocytosis, and tachycardia) and treated with IV antibiotics and IVF. At the time of admission, there was no identifiable source of infection. Possibilities included pyelonephritis and infected renal calculi. In less than 24 hours the patients BP, HR, and WBC all returned to normal range. He frequently reported his pain as 5/5, requesting IV narcotic pain medication, even though nursing staff reported he was frequently sleeping and nodding off during assessments. The patient's case was been discussed with Dr. Jaime of urology and hospitalist attending. There was no evidence of perinephritic edema surrounding the left intrarenal stone. Additionally, neither of the 2 calculi were obstructive. The entire medical team was in agreement that the patient's pain is out of proportion to the objective findings. Nursing staff reported to this provider that the patient admits to a history of heroin use. His pain tolerance is very low and his narcotic requirement is very high. Since there is no significant findings from the patient's lab work or imaging, the patient was discharged home. He was instructed to take flomax BID until he was able to pass both stones. The patient was not sent home with pain medication because he still had percocet available to him from his last visit to [facility]. Physical Exam Vital Signs: Temp Pulse Resp BP Pulse Ox 98.0 F 71 18 104/52 L 98 12/06/17 17:23 12/06/17 17:23 12/06/17 17:23 12/06/17 17:23 12/06/17 17:23 Results Laboratory Results: 12/06/17 03:53 12/06/17 03:53 Impressions: Head CT 12/05/17 00:00 IMPRESSION: 1. No acute intracranial abnormality identified. This exam was performed according to our departmental dose-optimization program, which includes automated exposure control, adjustment of the mA and/or kV according to patient size and/or use of iterative reconstruction technique. Abdomen/Pelvis CT 12/05/17 07:25 IMPRESSION: No acute process. 7 mm left lower pole intrarenal nonobstructive stone, 8 mm bladder stone. Status: Imported from PACS Qualifiers - * PATIENT BEING DISCHARGED WITH ANY OF THE FOLLOWING DIAGNOSIS: No Plan Discharge Plan: Discharge home with follow up to urologist. Time Spent: Less than 30 Minutes
== END 2017-12-06 17:35 | disposition home or self-care (01) | DRG 694 ==
LOC: ER 03:35 → EH 09:36 → 5 17:38
PROVIDERS: ADMIT Internal Medicine; ATTEND Internal Medicine
DX: N20.0 Calculus of kidney (principal); I95.89 Other hypotension; N21.0 Calculus in bladder; F90.9 Attention-deficit hyperactivity disorder, unspecified type; D72.825 Bandemia; M10.9 Gout, unspecified; F17.210 Nicotine dependence, cigarettes, uncomplicated; Z88.1 Allergy status to other antibiotic agents; Z82.49 Family history of ischemic heart disease and other diseases of the circulatory system; Z83.3 Family history of diabetes mellitus; Z82.3 Family history of stroke; Z86.59 Personal history of other mental and behavioral disorders
CPT/HCPCS: 36415; 70450; 74177; 80048; 80053; 80307; 81001; 83605; 83735; 84100; 85025; 85027; 87040; 87086; 96361; 96365; 99291; J0696; J1650; J1885; J2270; J2310; J7030

== ENCOUNTER 2018-02-11 02:23 | Emergency (ER) | payer SELFPAY ==
[2018-02-11 02:31] VITALS: BP 120/68
[2018-02-11] MEDS ORDERED: LIDOCAINE 1% INJ-PF (10 MG/ML) 30 ML SDV INJ ONE (02:59)
[2018-02-11] MEDS ORDERED: AZITHROMYCIN 250 MG TABLET PO ONE (02:59)
[2018-02-11] MEDS ORDERED: CEFTRIAXONE INJ 250 MG VIAL IM ONE (02:59)
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
[2018-02-11 05:46] LABS: CHLAM PCR DETECTED (NOT DETECT); GON PCR DETECTED (NOT DETECT)
== END 2018-02-11 04:35 | disposition home or self-care (01) ==
LOC: ER 02:23
DX: R36.9 Urethral discharge, unspecified (principal); Z20.2 Contact with and (suspected) exposure to infections with a predominantly sexual mode of transmission
CPT/HCPCS: 99283; 96372; 87491; 87591; J0696

== ENCOUNTER 2018-02-27 13:40 | Emergency (ER) | payer SELFPAY ==
[2018-02-27 13:48] VITALS: BP 132/87
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
[2018-02-27] MEDS ORDERED: KETOROLAC TROMETHAMINE 60 MG/2 ML SDV IM ONE (14:51)
[2018-02-27] MEDS ORDERED: OXYCODONE-ACETAMINOPHEN 5-325 MG TABLET PO ONE (14:51)
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
--- NOTE | 2018-02-27 20:23 | EKG REPORT ---
SEVERITY:- BORDERLINE ECG - SINUS RHYTHM BORDERLINE INFERIOR Q WAVES TALL R WAVE IN V2, CONSIDER [facility] OR PMI : Confirmed by: Celestina Akhtar 27-Feb-2018 20:22:03
== END 2018-02-27 18:20 | disposition home or self-care (01) ==
LOC: ER 13:40
DX: M94.0 Chondrocostal junction syndrome [Tietze] (principal); S20.212A Contusion of left front wall of thorax, initial encounter; R06.02 Shortness of breath; W22.8XXA Striking against or struck by other objects, initial encounter; F17.210 Nicotine dependence, cigarettes, uncomplicated; Z87.442 Personal history of urinary calculi
CPT/HCPCS: 93005; 99285; 96372; 71101; 71120; 93010; J1885

== ENCOUNTER 2018-03-04 13:21 | Emergency (ER) | payer SELFPAY ==
[2018-03-04 13:26] VITALS: BP 124/77
[2018-03-04] MEDS ORDERED: KETOROLAC TROMETHAMINE 60 MG/2 ML SDV IM ONE (14:16)
[2018-03-04] MEDS ORDERED: BENZONATATE 100 MG CAPSULE PO ONE (14:16)
--- NOTE | 2018-03-04 14:22 | ER Document Report ---
HPI - HPI Pain Level: 4 Notes: Patient is a 37-year-old male who presents to the ED complaining of nasal congestion/discharge, postnasal drip, dry nonproductive cough that began last evening. Patient states that it is exacerbating his chest and rib pain that he had after an accident 5 days ago. Patient was evaluated at that time and was given pain medication as he had negative x-rays. Patient states that the pain was actually improving until he started coughing and now is becoming sore again. Patient finished 15 tablets of oxycodone in the last 3.5-4 days. He is eating and drinking without any difficulties. He is urinating normally. Denies drug allergies. Denies any headache, fever, sore throat, palpitations, syncope, shortness of breath, wheeze, dyspnea, abdominal pain, nausea/vomiting/ diarrhea, urinary retention, dysuria, hematuria, or rash. - ROS Systems Reviewed and Negative: Yes All other systems reviewed and negative - REPRODUCTIVE Reproductive: DENIES: : Past Medical History - Social History Smoking Status: Current Every Day Smoker Family History: Reviewed & Not Pertinent, Arthritis, CAD, COPD, CVA, DM, Hyperlipidemia, Hypertension, Malignancy, Thyroid Disfunction, Other - Negative for premature coronary artery disease Renal/ Medical History: Reports: Hx Kidney Stones. 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 A&Ox4. Answers questions appropriately. HEAD: Atraumatic, normocephalic. EYES: Pupils equal round and reactive to light, extraocular movements intact, sclera anicteric, conjunctiva are normal. ENT: Nares patent and with clear discharge. oropharynx clear without exudates. No tonsilar hypertrophy or erythema. Moist mucous membranes. No airway compromise. NECK: Normal range of motion, supple without lymphadenopathy Chest: + reproducible tenderness to palpation of the sternal area and left chest wall which is also reproducible with arm extension/abduction. LUNGS: Breath sounds clear to auscultation bilaterally and equal. No wheezes rales or rhonchi. HEART: Regular rate and rhythm without murmurs, rubs, gallops. ABDOMEN: Soft, nontender, nondistended abdomen. No guarding, no rebound. No masses appreciated. Normal bowel sounds present. No CVA tenderness bilaterally. Musculoskeletal: FROM to passive/active. Strength 5+/5. Radha neg. No asymmetry to LE's. Extremities: No cyanosis, clubbing, or edema b/l. Peripheral pulses 2+. Capillary refill less than 3 seconds. NEUROLOGICAL: Normal speech, normal gait. PSYCH: Normal mood, normal affect. SKIN: Warm, Dry, normal turgor, no rashes or lesions noted. - INFECTION CONTROL TRAVEL OUTSIDE OF THE [place] IN LAST 30 DAYS: No Course - Re-evaluation Re-evalutation: 03/04/18 14:20 Patient is an afebrile, well-hydrated, 37-year-old male who presents to the ED with an acute URI, suspect viral, which is also exacerbating his chest wall pain which I suspect to be inflammatory as he had a negative workup the other day and was diagnosed with chest wall contusion/rib contusion. Vitals are acceptable without significant tachycardia, tachypnea, or hypoxia. PE is otherwise unremarkable aside from the reproducible tenderness. No labs or imaging warranted at this time. Tessalon Perles as well as Toradol given today. Low suspicion for any ACS, PE, pneumothorax, pericarditis, dissection, respiratory compromise, severe dehydration, sepsis, meningitis, or other systemic emergent condition at this time. Patient is aware that his condition can change from initial presentation and he needs to monitor symptoms closely and seek medical attention for any acute changes. I will send him home with a prescription for Tessalon Perles as well as naproxen. Recommend conservative measures for symptoms. Recheck with your PCM in 3-5 days. Return to the ED with any worsening/concerning symptoms otherwise as reviewed in discharge. Patient is in agreement. - Vital Signs Vital signs: Temp Pulse Resp BP Pulse Ox 98.5 F 91 14 124/77 99 03/04/18 13:26 03/04/18 13:26 03/04/18 13:26 03/04/18 13:26 03/04/18 13:26 Discharge - Discharge Clinical Impression: Acute URI, Chest wall pain Condition: Stable Disposition: HOME, SELF-CARE Instructions: Upper Respiratory Illness ([facility]), Chest Wall Pain ([facility]) Additional Instructions: Rest, ice, cool compress, warm compress as needed Maintain adequate fluid intake Take meds as directed tylenol/ibuprofen as needed over the counter cold medication as needed for symptoms Humidified air may help Wash your hands regularly Wear a mask when coughing F/u: with your PCM in 3-5 days for a recheck Return to the ED with any fever, worsening pain, chest pain, palpitations, syncope, worsening DANIEL, neck pain/stiffness, shortness of breath, wheezing, drooling, trouble swallowing/breathing, abdominal pain, n/v/d, rash, or worsening/concerning symptoms otherwise. Prescriptions: Benzonatate [Tessalon Perle 100 mg Capsule] 100 mg PO Q8HP PRN #15 cap PRN Reason: Naproxen 500 mg PO BID PRN #20 tablet PRN Reason: Forms: Smoking Cessation Education Referrals: [facility] [Provider Group] - Follow up as needed [facility] [Provider Group] - Follow up as needed
== END 2018-03-04 14:49 | disposition home or self-care (01) ==
LOC: ER 13:21
DX: J06.9 Acute upper respiratory infection, unspecified (principal); R07.89 Other chest pain; R09.81 Nasal congestion; R09.82 Postnasal drip; R05 Cough; F17.200 Nicotine dependence, unspecified, uncomplicated
CPT/HCPCS: 99283; 96372; J1885

== ENCOUNTER 2020-03-29 23:56 | Emergency (ER) | payer SELFPAY ==
[2020-03-30 00:06] VITALS: BP 149/79
[2020-03-30] MEDS ORDERED: ACETAMINOPHEN 325 MG TABLET PO ONE (00:14)
[2020-03-30] MEDS ORDERED: IBUPROFEN 600 MG TABLET PO ONE (00:14)
[2020-03-30] MEDS ORDERED: LIDOCAINE 1% INJ-PF (10 MG/ML) 30 ML SDV INJ ONE (00:15)
--- NOTE | 2020-03-30 00:17 | ER Document Report ---
ED Medical Screen (RME) - General Stated Complaint: RIGHT HAND ABCESS Time Seen by Provider: 03/30/20 00:12 Notes: Patient is a 39-year-old male who presents the emergency department with a chief complaint of right hand pain. Patient is an IV drug user and he states that he started a notice an abscess to his right hand. 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 States that he is starting to have body aches. Denies any fever. Exam: Abscess noted to right hand. I have greeted and performed a rapid initial assessment of this patient. A comprehensive ED assessment and evaluation of the patient, analysis of test results and completion of medical decision making process will be conducted by an additional ED providers. TRAVEL OUTSIDE OF THE [place] IN LAST 30 DAYS: No - Related Data Allergies/Adverse Reactions: No Known Allergies Allergy (Verified 02/27/18 13:43) Past Medical History Renal/ Medical History: Reports: Hx Kidney Stones. 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 Psychiatric Medical History: Reports: Hx Attention Deficit Hyperactivity Disorder Denies: Hx Depression Infectious Medical History: Reports: Hx C-Diff Past Surgical History: Reports: Hx Kidney (Renal Surgery) - x3, Hx Orthopedic Surgery - right knee, Other - lithotripsy - Immunizations Hx Diphtheria, Pertussis, Tetanus Vaccination: No Physical Exam - Vital signs Vitals: Temp Pulse Resp BP Pulse Ox 97.5 F 99 19 149/79 H 99 03/30/20 00:04 03/30/20 00:04 03/30/20 00:04 03/30/20 00:04 03/30/20 00:04 Course - Vital Signs Vital signs: Temp Pulse Resp BP Pulse Ox 97.5 F 99 19 149/79 H 99 03/30/20 00:04 03/30/20 00:04 03/30/20 00:04 03/30/20 00:04 03/30/20 00:04
--- NOTE | 2020-03-30 02:12 | RADIOLOGY REPORT (SQ) ---
CLINICAL INDICATION: eval osteomylitis. Infection. TECHNIQUE: 3 view(s) were obtained of the right hand. COMPARISON: None. FINDINGS: No acute displaced fracture is identified of the hand. Alignment appears anatomic. Joint spaces are within normal limits for age. Soft tissue swelling. No plain radiographic evidence of osteomyelitis. No retained radiopaque foreign body. IMPRESSION: No evidence of acute bony injury to the hand. No plain radiographic evidence of osteomyelitis, by report the clinical concern
[2020-03-30 02:39] LABS: ALBUMIN 3.9 g/dL (3.5-5.0); ALKALINE PHOSPHATASE 69 U/L (38-126); ANION GAP 9 (5-19); ASPARTATE AMINO TRANSFERASE 25 U/L (17-59); BILIRUBIN,DIRECT 0.1 mg/dL (0.0-0.4); BILIRUBIN,TOTAL 0.4 mg/dL (0.2-1.3); BLOOD UREA NITROGEN 14 mg/dL (7-20); CARBON DIOXIDE 27 mmol/L (22-30); CHLORIDE 99 mmol/L (98-107); GLUCOSE 125 mg/dL (75-110); TOTAL PROTEIN 7.3 g/dL (6.3-8.2)
[2020-03-30 02:45] LABS: ABSOLUTE BASOPHILS # (AUTO) 0.1 10^3/uL (0.0-0.2); ABSOLUTE EOSINOPHILS # (AUTO) 0.2 10^3/uL (0.0-0.6); ABSOLUTE LYMPHOCYTES (AUTO) 2.2 10^3/uL (0.5-4.7); ABSOLUTE MONOCYTES (AUTO) 1.4 10^3/uL (0.1-1.4); ABSOLUTE NEUT (AUTO) 10.7 10^3/uL (1.7-8.2); BASOPHILS % (AUTO) 0.3 % (0-2); EOSINOPHILS % (AUTO) 1.3 % (0-6); HEMATOCRIT 38.7 % (37.9-51.0); HEMOGLOBIN 13.8 g/dL (13.5-17.0); LYMPHOCYTES % (AUTO) 15.1 % (13-45); MEAN CORPUSCULAR HEMOGLOBIN 30.4 pg (27.0-33.4); MEAN CORPUSCULAR HGB CONC 35.6 g/dL (32.0-36.0); MEAN CORPUSCULAR VOLUME 85 fl (80-97); MONOCYTES % (AUTO) 9.4 % (3-13); PLATELET COUNT 346 10^3/uL (150-450); RED BLOOD COUNT 4.54 10^6/uL (4.35-5.55); RED CELL DISTRIBUTION WIDTH 13.4 % (11.5-14.0); SEGMENTED NEUTROPHILS % (AUTO) 73.9 % (42-78); TOTAL CELLS COUNTED % (AUTO) 100 %; WHITE BLOOD COUNT 14.5 10^3/uL (4.0-10.5)
--- NOTE | 2020-03-30 02:50 | ER Document Report ---
ED General - General Chief Complaint: Abscess Stated Complaint: RIGHT HAND ABCESS Time Seen by Provider: 03/30/20 00:12 Notes: 39-year-old male history of IV drug use presents with painful lump on right hand for past 2 days. Patient says it quickly grew has not been draining and denies any measured fevers or vomiting. Also complains of difficulty urinating without any dysuria, urgency, frequency, or flank pain TRAVEL OUTSIDE OF THE [place] IN LAST 30 DAYS: No - Related Data Allergies/Adverse Reactions: No Known Allergies Allergy (Verified 02/27/18 13:43) Past Medical History - General Information source: Patient - Social History Smoking Status: Current Every Day Smoker Drug Abuse: Heroin Family History: Reviewed & Not Pertinent, Arthritis, CAD, COPD, CVA, DM, Hyperlipidemia, Hypertension, Malignancy, Thyroid Disfunction, Other - Negative for premature coronary artery disease Renal/ Medical History: Reports: Hx Kidney Stones. 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 Psychiatric Medical History: Reports: Hx Attention Deficit Hyperactivity Disorder Denies: Hx Depression Infectious Medical History: Reports: Hx C-Diff Past Surgical History: Reports: Hx Kidney (Renal Surgery) - x3, Hx Orthopedic Surgery - right knee, Other - lithotripsy - Immunizations Hx Diphtheria, Pertussis, Tetanus Vaccination: No Review of Systems - Review of Systems Notes: REVIEW OF SYSTEMS: CONSTITUTIONAL : Denies fever, weight loss EENT: Denies recent cold/sinus symptoms, denies throat pain CARDIOVASCULAR: Denies chest pain, [place] RESPIRATORY: Denies cough, denies shortness of breath. GASTROINTESTINAL: Denies abdominal pain, vomiting. GENITOURINARY: + difficulty urinating, -painful urination. MUSCULOSKELETAL: Denies neck pain, back pain. SKIN: + rash or skin lesions. HEMATOLOGIC : Denies easy bruising or bleeding. LYMPHATIC: Denies swollen, enlarged glands. NEUROLOGICAL: Denies headache, denies change in gait. PSYCHIATRIC: Denies anxiety or stress or depression. Physical Exam - Vital signs Vitals: Temp Pulse Resp BP Pulse Ox 97.5 F 99 19 149/79 H 99 03/30/20 00:04 03/30/20 00:04 03/30/20 00:04 03/30/20 00:04 03/30/20 00:04 - Notes Notes: PHYSICAL EXAMINATION: GENERAL: Well-appearing, well-nourished and in no acute distress. HEAD: Atraumatic, normocephalic. EYES: Pupils equal round and appropriate constriction, sclera anicteric, conjunctiva are normal. ENT: nares patent, moist mucous membranes. NECK: Normal range of motion, supple without lymphadenopathy LUNGS: Breath sounds clear to auscultation bilaterally and equal. No wheezes rales or rhonchi. HEART: Regular rate and rhythm without murmurs, rubs, or gallops ABDOMEN: Soft, nontender, no guarding, no masses, no CVAT EXTREMITIES: Normal range of motion, radial pulses 2+ bilaterally, focal 2 x 2 centimeter abscess with central fluctuance overlying dorsal web of right hand between first and second digits without any surrounding skin erythema or edema or abnormal warmth, full strength and sensation in all extremity distributions NEUROLOGICAL: Awake, alert, conversing appropriately, moves all extremities spontaneously. PSYCH: Normal mood, normal affect. SKIN: Warm, Dry, normal turgor Course - Re-evaluation Re-evalutation: 03/30/20 03:06 Patient presents with abscess to right hand without normal neurovascular exam, no systemic symptoms. Patient complained of difficulty urinating but had normal postvoid residual and no urinary symptoms. Met SIRS criteria but was unable to further evaluate or obtain lactate because patient eloped. Pt unable to give urine sample bc bladder was empty and patient eloped after I&D. Patient knew his evaluation and treatment was not completed at the time of his elopement. no need to call patient back to ED, no indication for antibiotics and patient had capacity to leave and was clinically sober, oriented, with clear speech and steady gait at time of elopement. - Vital Signs Vital signs: Temp Pulse Resp BP Pulse Ox 97.5 F 99 19 149/79 H 99 03/30/20 00:04 03/30/20 00:04 03/30/20 00:04 03/30/20 00:04 03/30/20 00:04 - Laboratory Result Diagrams: 03/30/20 02:12 03/30/20 02:12 Laboratory results interpreted by me: 03/30/20 03/30/20 02:12 02:12 WBC 14.5 H Absolute Neuts (auto) 10.7 H Sodium 134.8 L Creatinine 1.26 H Glucose 125 H Procedures - Incision and Drainage Right Dorsal Hand Time completed: 02:40 Type: Complex Anesthetic type: 1% Lidocaine mL's of anesthetic: 5 Blade size: 11 I&D procedure: Betadine prep applied Incision Method: Incision made by scalpel Amount/type of drainage: 5 ml Notes: 03/30/20 02:54 Used blunt dissection to break up loculations of approximately 2 x 2 centimeter abscess in skin overlying web between first and second digits - Ultrasound/Bedside Ultrasound/Bedside Time completed: 02:40 Ultrasound: Normal, Other - Performed post void residual bladder ultrasound which showed 12 mL bladder volume. Discharge - Discharge Clinical Impression: Abscess Disposition: ELOPED
== END 2020-03-30 02:55 | disposition left against medical advice (07) ==
LOC: ER 23:56
DX: L02.511 Cutaneous abscess of right hand (principal); F11.10 Opioid abuse, uncomplicated; F17.200 Nicotine dependence, unspecified, uncomplicated; Z53.20 Procedure and treatment not carried out because of patient's decision for unspecified reasons
CPT/HCPCS: 99281; 36415; 87040; 85025; 80053; 73130; 10060; J3490

== ENCOUNTER 2020-06-12 08:00 | Emergency (ER) | payer OTHER ==
[2020-06-12] MEDS ORDERED: NORMAL SALINE 1000 ML 1,000 ML IV ONE (08:31)
[2020-06-12 08:48] LABS: APPEARANCE,URINE CLEAR; BILIRUBIN,URINE NEGATIVE (NEGATIVE); COLOR,URINE YELLOW; GLUCOSE, URINE NEGATIVE (NEGATIVE); KETONES,URINE 20 mg/dL (NEGATIVE); LEUKOCYTE ESTERASE,URINE MODERATE (NEGATIVE); NITRITE,URINE NEGATIVE (NEGATIVE); PROTEIN,URINE NEGATIVE (NEGATIVE); URINE SPECIFIC GRAVITY 1.012; UROBILINOGEN,URINE NEGATIVE mg/dL (<2.0)
[2020-06-12] MEDS ORDERED: TAMSULOSIN HCL 0.4 MG CAP.SR.24H PO ONE (08:56)
--- NOTE | 2020-06-12 09:08 | RADIOLOGY REPORT (SQ) ---
EXAM DESCRIPTION: CT ABD/PELVIS NO ORAL OR IV IMAGES COMPLETED DATE/TIME: 06/12/2020 8:48 am REASON FOR STUDY: kidney stones COMPARISON: 10/19/2015, 11/16/2015 CT abdomen pelvis TECHNIQUE: CT scan of the abdomen and pelvis performed without intravenous or oral contrast. Images reviewed with lung, soft tissue, and bone windows. Reconstructed coronal and sagittal MPR images revi ewed. All images stored on PACS. All CT scanners at this facility use dose modulation, iterative reconstruction, and/or weight based d osing when appropriate to reduce radiation dose to as low as reasonably achievable (ALARA). [facility]: Dose Right [facility]: CareDose [facility]: Dose Right [facility]: Teradose 4D [facility]: [employer] RADIATION DOSE: CT Rad equipment meets quality standard of care and radiation dose reduction techniq ues were employed. CTDIvol: 10.0 mGy. DLP: 559 mGy-cm.mGy. LIMITATIONS: None. FINDINGS: 13 mm left distal ureteral stone causing moderate to marked left hydronephrosis and hydrou reter. Stone measures 850 Hounsfield units, best shown on coronal image 57 and axial image 82. Elsewhere in the left kidney, no other renal stones are present. No other left ureteral calculi. No left renal masses or cysts. LOWER CHEST: No significant findings. No nodules or infiltrates. NON-CONTRASTED LIVER, SPLEEN, ADRENALS: Evaluation limited by lack of IV contrast. No identified sign ificant masses. PANCREAS: No masses. No peripancreatic inflammatory changes. GALLBLADDER: No identified stones by CT criteria. No inflammatory changes to suggest cholecystitis. RIGHT KIDNEY AND URETER: No suspicious masses. Assessment limited by lack of IV contrast. No signif icant calcifications. No hydronephrosis or hydroureter. LEFT KIDNEY AND URETER: As above. AORTA AND RETROPERITONEUM: No aneurysm. No retroperitoneal masses or adenopathy. BOWEL AND PERITONEAL CAVITY: No obvious masses or inflammatory changes. No free fluid. APPENDIX: Normal. PELVIS, BLADDER, AND ABDOMINAL WALL:No abnormal masses. No free fluid. Bladder normal. BONES: No significant findings. OTHER: No other significant finding. IMPRESSION: 13 mm distal left ureteral stone causing left hydronephrosis/ hydroureter. COMMENT: Quality ID # [id number]: Final reports with documentation of one or more dose reduction techniques (e.g., Automated exposure control, adjustment of the mA and/or kV according to patient size, use of iterative reconstruction technique) TECHNICAL DOCUMENTATION: JOB ID: [id number] 2010 [email or web address]- All Rights Reserved Reading location - IP/workstation name: [id number]
--- NOTE | 2020-06-12 09:10 | ER Document Report ---
ED GI/ - General Chief Complaint: Flank Pain Stated Complaint: ABDOMINAL PAIN, FLANK PAIN Time Seen by Provider: 06/12/20 08:13 Primary Care Provider: SENAIT VICTOR MD [NO LOCAL MD] - Follow up as needed TRAVEL OUTSIDE OF THE [place] IN LAST 30 DAYS: No - HPI Notes: 06/12/20 09:05 40-year-old male presents to ED for evaluation of possible kidney stone to the left side. Patient is currently incarcerated at [facility]. Patient reports he has had roughly 5 days of symptoms and did have a urine dip performed which showed trace ketones, large amounts of blood, negative leukocytes and nitrates. Patient notes he had been taking flomax and ibuprofen without improvement. Notes that he has required lithotripsy and stents in the past. Patient has seen [facility] in the past for management. Patient denies any nausea or vomiting. Denies concerns for STD. Patient endorses no other complaints. Denies concerns for COVID. - Related Data Allergies/Adverse Reactions: No Known Allergies Allergy (Verified 02/27/18 13:43) Past Medical History - Social History Smoking Status: Former Smoker Drug Abuse: Heroin Lives with: Other - [facility] Family History: Reviewed & Not Pertinent, Arthritis, CAD, COPD, CVA, DM, Hyperlipidemia, Hypertension, Malignancy, Thyroid Disfunction, Other - Negative for premature coronary artery disease Renal/ Medical History: Reports: Hx Kidney Stones. 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 SKIN: No rash. HENT: No congestion, ear pain, or sore throat. EYES: No recent vision problems or eye pain. ENDOCRINE: No thyroid problems. No polyuria or polydipsia. CARDIOVASCULAR: No chest pain or edema. RESPIRATORY: No cough, shortness of breath, congestion, or wheezing. GASTROINTESTINAL: No abdominal pain, nausea, vomiting, bloody stools or diarrhea. GENITOURINARY: + dysuria, + for flank pain. MUSCULOSKELETAL: No joint pain or swelling. LYMPHATIC: No swollen glands. NEUROLOGIC: No seizures. No headache, focal weakness or sensory changes. HEMATOLOGIC: No unusual bruising or bleeding. PSYCHIATRIC: No depression or anxiety. Physical Exam - Vital signs Vitals: Temp Pulse Resp BP Pulse Ox 99.5 F 139 H 18 142/92 H 96 06/12/20 08:04 06/12/20 08:04 06/12/20 08:04 06/12/20 08:04 06/12/20 08:04 General: No acute distress. Alert and oriented x3. Sitting comfortably in a stretcher. Skin: No jaundice, pallor, petechiae, or rashes. Warm and dry. HEENT: Normocephalic, atraumatic. Pupils are equal round reactive to light and accommodation. Extraocular movements are intact. TMs without erythema or bulging. Canals are clear. Nares patent without any discharge. Teeth in good condition. Pharynx without erythema, edema, or exudates. Mucous membranes moist. No tonsillar enlargement. Uvula is midline. Airway is patent. Neck: Supple with no lymphadenopathy. Full range of motion. Heart: Regular rate and rhythm. S1,S2. No murmurs, rubs, or gallops. Lungs: Clear to auscultation bilaterally. No wheezes, rhonchi, rales. Equal chest expansion. No retractions. Abdomen: Soft, tender to palpation in left lower abdomen, nondistended. Positive bowel sounds in all 4 quadrants. No masses. Left CVA tenderness. Back: No midline spinal TTP. No paraspinous muscular TTP. Neuro: GCS 15. Moving all extremities without discomfort. Psych: Mood and affect appropriate. Course - Re-evaluation Re-evalutation: 06/12/20 13:37 40-year-old male presents to ED for evaluation of left sided flank pain. Patient is from [facility] and has been on Flomax as well as ibuprofen without improvement in his symptoms. His urine dip there did show blood as well as nitrates. Patient was evaluated with CBC, CMP, UA, lipase. Lab work was found to be bacteria as well as blood. Leukocytosis of 12.3 noted. Patient further evaluated with CT scan of the abdomen and pelvis which was positive for nephrolithiasis to the left UVJ of 13 mm with hydroureter and hydronephrosis. Started on rocephin and pain management with flomax. Imaging results discussed with the patient. Placed call to [facility] at 13:37 for urology management. Spoke with Dr. Victor commended to continue patient on Keflex and that he be seen for outpatient management in the next 1 to 2 days. Recommended that his facility contact the office for outpatient follow-up. Kept on norco for pain management. Understands indications to return to ED. Understands treatment plan. Patient is in agreement. 06/12/20 18:08 - Vital Signs Vital signs: Temp Pulse Resp BP Pulse Ox 98.9 F 90 14 134/88 H 100 06/12/20 16:11 06/12/20 16:11 06/12/20 16:11 06/12/20 16:11 06/12/20 16:11 - Laboratory Results Result Diagrams: 06/12/20 12:15 06/12/20 12:15 Laboratory Results Interpreted: 06/12/20 06/12/20 06/12/20 08:22 12:15 12:15 WBC 12.3 H Hgb 13.4 L RDW 14.6 H Lymph % (Auto) 9.9 L [place] % (Auto) 13.9 H Absolute Neuts (auto) 9.1 H Absolute Monos (auto) 1.7 H Sodium 132.9 L AST 14 L Albumin 3.4 L Urine Ketones 20 H Urine Blood MODERATE H Ur Leukocyte Esterase MODERATE H Critical Laboratory Results Reviewed: No Critical Results - Radiology Results Critical Radiology Results Reviewed: No Critical Results Discharge - Discharge Clinical Impression: Nephrolithiasis, Flank pain Condition: Stable Disposition: HOME, SELF-CARE Instructions: Flank Pain ([facility]), Oral Narcotic Medication ([facility]) Additional Instructions: Call urology tomorrow morning in [place] for appointment tomorrow to follow up. Please hold NSAID medications in case there is a need for stenting. Prescriptions: Cephalexin Monohydrate [Keflex 500 mg Capsule] 500 mg PO Q6H 5 Days #20 capsule Referrals: SENAIT VICTOR MD [NO LOCAL MD] - Follow up as needed
[2020-06-12] MEDS: MORPHINE SULFATE 10 MG/ML INJ IV PRN ×2 (09:34→10:54)
[2020-06-12] MEDS ORDERED: KETOROLAC TROMETHAMINE INJ/PF 30 MG/1 ML SDV IV ONE (10:28)
[2020-06-12] MEDS: CEFTRIAXONE 1 GM/D5W RTU 1 GM/50 ML RTUPB IV ONE ×2 (10:55→11:27)
[2020-06-12] MEDS ORDERED: CEFTRIAXONE 1 GM/D5W RTU 1 GM/50 ML RTUPB IV ONE (11:00)
[2020-06-12] MEDS ORDERED: LIDOCAINE 2% INJ (20 MG/ML) 20 ML MDV INJ ONE (11:39)
[2020-06-12 12:28] LABS: ABSOLUTE EOSINOPHILS # (AUTO) 0.2 10^3/uL (0.0-0.6); ABSOLUTE MONOCYTES (AUTO) 1.7 10^3/uL (0.1-1.4); HEMOGLOBIN 13.4 g/dL (13.5-17.0); TOTAL CELLS COUNTED % (AUTO) 100 %
[2020-06-12 12:34] LABS: ABSOLUTE LYMPHOCYTES (AUTO) 1.2 10^3/uL (0.5-4.7); ABSOLUTE NEUT (AUTO) 9.1 10^3/uL (1.7-8.2); BASOPHILS % (AUTO) 0.4 % (0-2); EOSINOPHILS % (AUTO) 1.5 % (0-6); HEMATOCRIT 38.5 % (37.9-51.0); LYMPHOCYTES % (AUTO) 9.9 % (13-45); MEAN CORPUSCULAR HEMOGLOBIN 29.6 pg (27.0-33.4); MEAN CORPUSCULAR HGB CONC 34.9 g/dL (32.0-36.0); MEAN CORPUSCULAR VOLUME 85 fl (80-97); MONOCYTES % (AUTO) 13.9 % (3-13); PLATELET COUNT 189 10^3/uL (150-450); RED BLOOD COUNT 4.54 10^6/uL (4.35-5.55); RED CELL DISTRIBUTION WIDTH 14.6 % (11.5-14.0); SEGMENTED NEUTROPHILS % (AUTO) 74.3 % (42-78); WHITE BLOOD COUNT 12.3 10^3/uL (4.0-10.5)
[2020-06-12 12:43] LABS: ALBUMIN 3.4 g/dL (3.5-5.0); ALKALINE PHOSPHATASE 48 U/L (38-126); ANION GAP 6 (5-19); ASPARTATE AMINO TRANSFERASE 14 U/L (17-59); BILIRUBIN,DIRECT 0.1 mg/dL (0.0-0.4); BILIRUBIN,TOTAL 0.8 mg/dL (0.2-1.3); BLOOD UREA NITROGEN 12 mg/dL (7-20); CALCIUM 8.4 mg/dL (8.4-10.2); CARBON DIOXIDE 24 mmol/L (22-30); CHLORIDE 103 mmol/L (98-107); GLUCOSE 105 mg/dL (75-110); POTASSIUM 3.9 mmol/L (3.6-5.0); TOTAL PROTEIN 6.3 g/dL (6.3-8.2)
[2020-06-12] MEDS ORDERED: HYDROCODONE/ACETAMINOPHEN 5-325 MG TABLET PO ONE (15:44)
[2020-06-12] MEDS ORDERED: HYDROCODONE/ACETAMINOPHEN 5-325 MG (6 TAB/ER DISP) PO PRN (15:44)
[2020-06-12 16:13] VITALS: BP 134/88
--- NOTE | 2020-06-12 20:32 | EKG REPORT ---
SEVERITY:- ABNORMAL ECG - SINUS TACHYCARDIA NONSPECIFIC T ABNORMALITIES, DIFFUSE LEADS : Confirmed by: Natalie Hicks MD 12-Jun-2020 20:31:00
== END 2020-06-12 16:11 | disposition home or self-care (01) ==
LOC: ER 08:00
DX: N13.2 Hydronephrosis with renal and ureteral calculous obstruction (principal); R30.0 Dysuria; R10.9 Unspecified abdominal pain; D72.829 Elevated white blood cell count, unspecified; F11.10 Opioid abuse, uncomplicated; Z87.891 Personal history of nicotine dependence
CPT/HCPCS: 93005; 99285; 96361; 96375; 96365; 36415; 83690; 85025; 80053; 81001; 74176; 93010; J1885; J2270; J7030; J0696